=== PATIENT | female | born 1955 | race Caucasian/White ===

== ENCOUNTER 2020-07-31 03:06 | Inpatient (IN) ==
--- NOTE | 2020-07-31 03:36 | DR.SOBA ---
HPI Time Seen Time Seen by Provider: 07/31/20 03:27 Primary Care Physician Primary Care Physician: bob HPI Comment HPI Comment: PATIENT IS 65YR OLD FEMALE IN ER WITH INCREASING SOB, LOW O2 SATURATION, COUGH, CONGESTION AND PLEURITIC CHEST TIGHTNESS. PATIENT ALSO TO BE CONFUSE. RUNNING LOW GRADE FEVER. PATIENT HAVE HISTORY OF COPD. Complaints Chief Complaint Doctors Comments: INCREASING SOB, COUGH, WHEEZING AND CONFUSION WORSE TODAY. Chief Complaint:: cough, short of breath, confusion COVID-19 Coronavirus risk:travel/contact w/high risk person: No Has patient experienced Coronavirus symptoms: Yes Coronavirus symptoms experienced: Fever, Coughing and Shortness of Breath Reviewed Nurses Notes Reviewed: Yes Source History Provided: Patient Mode of Arrival Mode of Arrival: Ambulatory Timing Onset of Chief Complaint: 07/31/20 Duration Duration: Hours Context Onset:: At Rest PE Risk Factors:: None History of:: COPD Currently on:: Inhaled Bronchodilators Prehospital Care:: Inhaled B2 Modifying Factors Worsens:: Exertion and Lying Flat Improves:: Rest and Sitting Up Associated Signs and Symptoms Associated Signs and Symptoms: Wheeze, Cough and Chest Pain If Chest Pain Quality: Pleuritic Location: Substernal If Cough Cough: Nonproductive PMH PMH Past Medical History: Yes Past Medical History: COPD and Coronary Artery Disease Past Medical History Comment: fibromyalgia Past Surgical History: Yes Surgical History: Ortho Surgery Past Surgical History Comment: Vein surgery; brain aneurysm repair Family History History of Family Medical Conditions: Yes Family Medical History: Cancer and Heart Failure Travel Risk Coronavirus risk:travel/contact w/high risk person: No Has patient experienced Coronavirus symptoms: Yes Coronavirus symptoms experienced: Fever, Coughing and Shortness of Breath Infectious screening Have you traveled outside the country in the last 6 months?: No Isolation: Droplet ROS Review of Systems Constitutional: No Symptoms Reported, See HPI, Fever, Weakness and Fatigue Eyes: No Symptoms Reported and See HPI ENTM: See HPI, Nose Discharge and Nose Congestion Respiratoy: See HPI, Productive Cough and Short of Breath Cardiovascular: See HPI, Chest Pain and Palpitations Gastrointestinal/Abdominal: No Symptoms Reported and See HPI; negative Abdominal Pain, Diarrhea and Vomiting Genitourinary: No Symptoms Reported and See HPI; negative Dysuria, Frequency and Hematuria Neurological: See HPI, Headache and Weakness; negative Dizziness Musculoskeletal: No Symptoms Reported, See HPI and Back Pain; negative Muscle Pain Integumentary: No Symptoms Reported and See HPI; negative Change in Color, Rash and Juandice Hematologic/Lymphatic: See HPI and Easy Bruising Endocrine: No Symptoms Reported and See HPI; negative Increased Thirst, Increased Urine and Decreased Appetite Psychiatric: No Symptoms Reported and See HPI All Other Systems: Reviewed and Negative PE Vital Signs Vitals: Temperature 99.9 F Pulse Rate [Right] 94 Pulse Rate 113 Respiratory Rate 22 Blood Pressure [Left Arm] 103/62 Blood Pressure 109/62 O2 Sat by Pulse Oximetry 94 General Limitations: No Limitations General Appearance: Alert and In No Apparent Distress Head Head Exam: Normal Inspection and Atraumatic Eyes Eye exam: Normal Appearance, PERRL and EOMI; negative Scleral Icterus and Conjunctival Injection ENT ENT Exam: Normal Exam, Normal Oropharynx, Normal External Ear Exam and TM's Normal Bilaterally Neck Neck Exam: Normal Inspection and Trachea Midline; negative Tenderness and Lym phadenopathy Chest Chest Inspection: Symmetric Chest Wall Rise; negative Tenderness Respiratory Respiratory Exam: Accessory Muscle Use and Respiratory Distress; negative Chest Wall Tenderness Respiratory Exam: Bilateral: Wheezing and Bilateral: Rhonchi and Lower: Wheezing and Lower: Rhonchi Cardiovascular Cardiovascular Exam: Normal Rhythm and Tachycardia; negative Systolic Murmur and Diastolic Murmur Abdominal Exam Abdominal Exam: Normal Inspection, Normal Bowel Sounds and Soft; negative Tenderness Extremities Extremities Exam: Normal Inspection, Tenderness and Normal Capillary Refill; negative Edema and Calf Tenderness Back Back Exam: Normal Inspection; negative (R) CVA Tenderness and (L) CVA Tenderness Neurologic Neurological Exam: Alert, Oriented X3 and CN II-XII Intact; negative Motor Sensory Deficit Psychiatric Psychiatric Exam: Normal Affect and Normal Mood Skin Skin Exam: Warm, Dry, Intact and Normal Color MDM Differential Diagnosis Differential Diagnosis: Bronchitis, CHF, COPD, Dysrhythmia, Hyponatremia, Mycardial Infarction, Pneumonia, Pneumothorax, Respiratory Insufficiency, Sinusitis, URI and Other (VIRAL ILLNESS.) COURSE Treatment Treatment: SEE ORDERS. DUO NEB, SOLUMEDROL 125MG IV AND ROCEPHIN 1GM IVPB. NS 1250CC IV BOLUS. O2 3L/M. Reevaluation 1st: Improved Consultation Consultation Comments: DISCUSSED PATIENT WITH DR. MANCIA. HE WILL ADMIT PATIENT. Education/Counseling Education/Counseling: Patient and Family Educated On: Diagnosis ROR Labs Reviewed Laboratory Results Reviewed?: Yes Result Diagrams: 07/31/20 03:52 07/31/20 03:52 Laboratory: WBC 13.1 X10^3/uL (3.6-10.0) H 07/31/20 03:52 RBC 4.29 X10^6/uL (3.5-5.4) 07/31/20 03:52 Hgb 11.8 g/dL (12.0-16.0) L 07/31/20 03:52 Hct 35.4 % (36.0-47.0) L 07/31/20 03:52 MCV 82.5 fL (80.0-100.0) 07/31/20 03:52 MCH 27.4 pg (27.0-34.0) 07/31/20 03:52 MCHC 33.2 g/dL (33.0-35.0) 07/31/20 03:52 RDW 15.1 % (11.6-16.5) 07/31/20 03:52 Plt Count 175 X10^3/uL (150.0-450.0) 07/31/20 03:52 MPV 8.6 fL (7.4-11.0) 07/31/20 03:52 Neut % (Auto) 88.9 % (42.0-75.0) H 07/31/20 03:52 Lymph % (Auto) 4.0 % (21.0-51.0) L 07/31/20 03:52 [place] % (Auto) 5.3 % (0.0-13.0) 07/31/20 03:52 Eos % (Auto) 1.6 % (0.9-2.9) 07/31/20 03:52 Baso % (Auto) 0.2 % (0.2-1.0) 07/31/20 03:52 Neut # (Auto) 11.6 x10^3/uL (2.2-4.8) H 07/31/20 03:52 Lymph # (Auto) 0.5 X10^3/uL (1.3-2.9) L 07/31/20 03:52 [place] # (Auto) 0.7 x10^3/uL (0.3-0.8) 07/31/20 03:52 Eos # (Auto) 0.2 x10^3/uL (0.0-0.2) 07/31/20 03:52 Baso # (Auto) 0.0 X10^3/uL (0.0-0.1) 07/31/20 03:52 Absolute Nucleated RBC 0.0 /100WBC 07/31/20 03:52 Sample Site Rrad 07/31/20 04:30 ABG pH 7.400 (7.35-7.45) 07/31/20 04:30 ABG pCO2 31.0 mmHg (35.0-45.0) L 07/31/20 04:30 ABG pO2 49.0 mmHg (80.0-100.0) L* 07/31/20 04:30 ABG HCO3 19.2 mmol/L (22-26) L 07/31/20 04:30 ABG O2 Saturation 84.0 % (90-100) L* 07/31/20 04:30 ABG Base Excess -4.6 mmol/L (-2.0-2.0) L 07/31/20 04:30 Dat Test Pos 07/31/20 04:30 A-a Gradient 62.0 mmHg 07/31/20 04:30 FiO2 21.0 07/31/20 04:30 Blood Gas Comments David abg well-mtf 07/31/20 04:30 Sodium 134 mmol/L (136-145) L 07/31/20 03:52 Corrected Sodium 135 mmol/L (136-145) L 07/31/20 03:52 Potassium 3.7 mmol/L (3.5-5.1) 07/31/20 03:52 Chloride 98 mmol/L (98-107) 07/31/20 03:52 Carbon Dioxide 20.9 mmol/L (21-32) L 07/31/20 03:52 BUN 46 mg/dL (7-18) H 07/31/20 03:52 Creatinine 2.99 mg/dL (0.55-1.02) H 07/31/20 03:52 Est GFR (MDRD) Af Amer 20 (>60) L 07/31/20 03:52 Est GFR (MDRD) Non-Af 17 (>60) L 07/31/20 03:52 Glucose 122 mg/dL (65-99) H 07/31/20 03:52 Calcium 8.6 mg/dL (8.5-10.1) 07/31/20 03:52 Corrected Calcium 9.3 mg/dL (8.5-10.1) 07/31/20 03:52 Total Bilirubin 0.20 mg/dL (0.2-1.0) 07/31/20 03:52 AST 13 Units/L (15-37) L 07/31/20 03:52 ALT 13 Units/L (12-78) 07/31/20 03:52 Alkaline Phosphatase 72 Units/L (46-116) 07/31/20 03:52 Creatine Kinase 152 Units/L (26-192) 07/31/20 03:52 CK-MB (CK-2) 2.3 ng/mL (0-4.0) 07/31/20 03:52 CK/CKMB % Calc 1.5 % (<4) 07/31/20 03:52 Troponin I < 0.02 ng/mL (0-1.5) 07/31/20 03:52 Total Protein 7.9 g/dL (6.4-8.2) 07/31/20 03:52 Albumin 3.1 g/dL (3.4-5.0) L 07/31/20 03:52 Globulin 4.8 g/dL (2.5-4.5) H 07/31/20 03:52 Albumin/Globulin Ratio 0.6 Ratio (1.1-2.1) L 07/31/20 03:52 SARS-CoV-2 (PCR) Negative (NEGATIVE) 07/31/20 05:52 Influenza Type A (PCR) Negative (NEGATIVE) 07/31/20 05:52 Influenza Type B (PCR) Negative (NEGATIVE) 07/31/20 05:52 RSV (PCR) Negative (NEGATIVE) 07/31/20 05:52 XRAY XRAY Interpreted by: Radiologist (REPORT NOTED AND DISCUSSED WITH PATIENT.) and Self EKG Rate: 113 Hasty: Normal Rhythm: NSR Block: None Hypertrophy: LAE ST: Normal Opioid Opioid Risk Tool Age (Jack box if 16-45): No Total: 0 Total Score Risk Category: Low Risk Copyright: [facility] predicting aberrant behaviors Diagnosis Discharge Problem: COPD exacerbation, Hypoxia Acute renal failure Qualifiers: Acute renal failure type: unspecified Qualified Code(s): N17.9 - Acute kidney failure, unspecified
[2020-07-31] MEDS ORDERED: SOLU-Medrol 125 MG VIAL ONE (03:43)
[2020-07-31] MEDS ORDERED: DUONEB 0.5 MG/3 MG (3 mL) NEB ONE (03:44)
[2020-07-31] MEDS ORDERED: SOLU-Medrol 125 MG VIAL IVP ONE (03:51)
[2020-07-31 04:11] LABS: BASOPHILS % (AUTO) 0.2 % (0.2-1.0); EOSINOPHILS # (AUTO) 0.2 x10^3/uL (0.0-0.2); EOSINOPHILS % (AUTO) 1.6 % (0.9-2.9); HEMATOCRIT 35.4 % (36.0-47.0); HEMOGLOBIN 11.8 g/dL (12.0-16.0); LYMPHOCYTES # (AUTO) 0.5 X10^3/uL (1.3-2.9); MEAN CORPUSCULAR HEMOGLOBIN 27.4 pg (27.0-34.0); MEAN CORPUSCULAR HGB CONC 33.2 g/dL (33.0-35.0); MEAN CORPUSCULAR VOLUME 82.5 fL (80.0-100.0); MEAN PLATELET VOLUME 8.6 fL (7.4-11.0); MONOCYTES # (AUTO) 0.7 x10^3/uL (0.3-0.8); MONOCYTES % (AUTO) 5.3 % (0.0-13.0); NEUTROPHILS # (AUTO) 11.6 x10^3/uL (2.2-4.8); NEUTROPHILS % (AUTO) 88.9 % (42.0-75.0); PLATELET COUNT 175 X10^3/uL (150.0-450.0); RED BLOOD COUNT 4.29 X10^6/uL (3.5-5.4); RED CELL DISTRIBUTION WIDTH 15.1 % (11.6-16.5); WHITE BLOOD COUNT 13.1 X10^3/uL (3.6-10.0)
[2020-07-31 04:23] LABS: BLOOD UREA NITROGEN 46 mg/dL (7-18); CALCIUM 8.6 mg/dL (8.5-10.1); CARBON DIOXIDE 20.9 mmol/L (21-32); CHLORIDE 98 mmol/L (98-107); COR NA(FOR HYPERGLY) 135 mmol/L (136-145); CREATININE 2.99 mg/dL (0.55-1.02); SODIUM 134 mmol/L (136-145); TROPONIN I < 0.02 ng/mL (0-1.5); eGFR NON BLACK RACES 17 (>60)
[2020-07-31 04:28] LABS: ALANINE AMINOTRANSFERASE 13 Units/L (12-78); ALBUMIN 3.1 g/dL (3.4-5.0); ALKALINE PHOSPHATASE 72 Units/L (46-116); ASPARTATE AMINO TRANSFERASE 13 Units/L (15-37); CKMB % 1.5 % (<4); COR CA(FOR HYPOALB) 9.3 mg/dL (8.5-10.1); CREATINE KINASE 152 Units/L (26-192); CREATINE KINASE MB 2.3 ng/mL (0-4.0); TOTAL PROTEIN 7.9 g/dL (6.4-8.2)
[2020-07-31 04:31] LABS: ABG BASE EXCESS -4.6 mmol/L (-2.0-2.0); ABG HCO3 19.2 mmol/L (22-26)
[2020-07-31 04:32] LABS: ABG ALLEN TEST POS
--- NOTE | 2020-07-31 04:57 | RAD ---
STUDY: FRONTAL VIEW CHESTCOMPARISON: NoneHISTORY: SOBFINDINGS:Subsegmental atelectasis is noted.No focal consolidation is seen.The heart size is within normal limits.The mediastinum is unremarkable.There is no evidence of pleural effusion or gross pneumothorax.The trachea is midline.IMPRESSION:1. No focal consolidation is seen.2. The heart size is normal.Electronically signed by: Yasmany Hansen (Jul 31, 2020 04:55:57)
[2020-07-31] MEDS ORDERED: ROCEPHIN 1 GRAM IV PREMIX 1 G/50 ML IV.SOLN. IV ONE ×2 (05:36→05:39)
[2020-07-31 07:29] LABS: BILIRUBIN,URINE NEGATIVE (NEGATIVE); BLOOD/HEMOGLOBIN,URINE 2+ (NEGATIVE); GLUCOSE, URINE 1+ (NEGATIVE); KETONES,URINE NEGATIVE (NEGATIVE); LEUKOCYTE ESTERASE ,URINE 2+ (NEGATIVE); NITRITES,URINE NEGATIVE (NEGATIVE); PROTEIN,URINE 2+ (NEGATIVE); UROBILINOGEN,URINE NORMAL (NORMAL)
[2020-07-31 07:42] LABS: APPEARANCE,URINE CLOUDY (CLEAR); COLOR,URINE YELLOW (YELLOW)
[2020-07-31 07:43] LABS: AMORPHOUS SEDIMENT,UR 1+ /HPF (NEGATIVE); BACTERIA,URINE 1+ /HPF (NEGATIVE); GRANULAR CASTS,URINE RARE /LPF (NEGATIVE); HYALINE CASTS, URINE RARE /LPF (NEGATIVE); SQUAMOUS EPITHELIAL CELL,UR MODERATE /HPF (NEGATIVE); YEAST,URINE RARE /HPF (NEGATIVE)
[2020-07-31] MEDS: DUONEB 0.5 MG/3 MG (3 mL) NEB SCH ×4 (09:05→21:05)
[2020-07-31 10:27] LABS: CKMB % 1.7 % (<4); CREATINE KINASE 133 Units/L (26-192); CREATINE KINASE MB 2.2 ng/mL (0-4.0); TROPONIN I < 0.02 ng/mL (0-1.5)
[2020-07-31] MEDS ORDERED: NS 250 ML IV 250 ML IV ONE (11:13)
[2020-07-31] MEDS: VSL#3 PO SCH (11:16)
[2020-07-31] MEDS: FORTAZ or TAZICEF VIAL INJ 1 G in NS 100 ML IV + SPIKE MINIBAG* 100 ML IV SCH (11:17)
[2020-07-31 12:20] VITALS: BMI 26.6
[2020-07-31] MEDS: DALIRESP PO SCH (12:29)
[2020-07-31] MEDS: NS 1000 ML 1,000 ML IV SCH ×2 (15:30→22:22)
[2020-07-31] MEDS: SINGULAIR TAB 10 MG PO SCH (21:15)
[2020-08-01] MEDS: NS 1000 ML 1,000 ML IV SCH ×6 (00:12→15:20)
[2020-08-01] MEDS: DUONEB 0.5 MG/3 MG (3 mL) NEB SCH ×6 (01:10→21:16)
[2020-08-01 05:47] LABS: BASOPHILS # (AUTO) 0.1 X10^3/uL (0.0-0.1); BASOPHILS % (AUTO) 0.6 % (0.2-1.0); EOSINOPHILS # (AUTO) 0.4 x10^3/uL (0.0-0.2); EOSINOPHILS % (AUTO) 3.1 % (0.9-2.9); HEMATOCRIT 26.7 % (36.0-47.0); LYMPHOCYTES # (AUTO) 0.9 X10^3/uL (1.3-2.9); LYMPHOCYTES % (AUTO) 6.6 % (21.0-51.0); MEAN CORPUSCULAR HGB CONC 32.8 g/dL (33.0-35.0); MEAN CORPUSCULAR VOLUME 82.1 fL (80.0-100.0); MEAN PLATELET VOLUME 8.6 fL (7.4-11.0); MONOCYTES % (AUTO) 7.3 % (0.0-13.0); NEUTROPHILS # (AUTO) 10.9 x10^3/uL (2.2-4.8); NEUTROPHILS % (AUTO) 82.4 % (42.0-75.0); PLATELET COUNT 175 X10^3/uL (150.0-450.0); RED BLOOD COUNT 3.25 X10^6/uL (3.5-5.4); RED CELL DISTRIBUTION WIDTH 15.2 % (11.6-16.5); WHITE BLOOD COUNT 13.3 X10^3/uL (3.6-10.0)
[2020-08-01 05:49] LABS: HEMOGLOBIN 8.8 g/dL (12.0-16.0)
[2020-08-01 06:00] LABS: ALBUMIN 2.5 g/dL (3.4-5.0); CALCIUM 7.7 mg/dL (8.5-10.1); CARBON DIOXIDE 18.5 mmol/L (21-32); COR CA(FOR HYPOALB) 8.9 mg/dL (8.5-10.1); CREATININE 2.14 mg/dL (0.55-1.02); TOTAL PROTEIN 6.5 g/dL (6.4-8.2)
[2020-08-01] MEDS: VSL#3 PO SCH (08:38)
[2020-08-01] MEDS: DALIRESP PO SCH (08:39)
[2020-08-01] MEDS: FORTAZ or TAZICEF VIAL INJ 1 G in NS 100 ML IV + SPIKE MINIBAG* 100 ML IV SCH (08:40)
[2020-08-01] MEDS ORDERED: SOLU-Medrol 40 MG VIAL IVP SCH (09:00)
[2020-08-01] MEDS ORDERED: NS 1000 ML 1,000 ML IV ONE (12:07)
[2020-08-01] MEDS ORDERED: NS 250 ML IV 250 ML IV ONE (14:30)
[2020-08-01] MEDS ORDERED: NORCO 10/325 TAB PO PRN (14:34)
[2020-08-01] MEDS ORDERED: ZESTRIL TAB 5 MG ONE (15:09)
[2020-08-01] MEDS: ZESTRIL TAB 5 MG PO SCH (15:12)
[2020-08-01] MEDS: DEPAKOTE D.R. TAB PO SCH (15:13)
[2020-08-01] MEDS: PROzac PO SCH (15:13)
[2020-08-01 18:19] LABS: BASOPHILS % (AUTO) 0.2 % (0.2-1.0); EOSINOPHILS # (AUTO) 0.5 x10^3/uL (0.0-0.2); EOSINOPHILS % (AUTO) 3.1 % (0.9-2.9); HEMATOCRIT 28.3 % (36.0-47.0); HEMOGLOBIN 9.2 g/dL (12.0-16.0); LYMPHOCYTES # (AUTO) 0.7 X10^3/uL (1.3-2.9); LYMPHOCYTES % (AUTO) 4.8 % (21.0-51.0); MEAN CORPUSCULAR HEMOGLOBIN 26.9 pg (27.0-34.0); MEAN CORPUSCULAR HGB CONC 32.5 g/dL (33.0-35.0); MEAN CORPUSCULAR VOLUME 82.5 fL (80.0-100.0); MEAN PLATELET VOLUME 8.3 fL (7.4-11.0); MONOCYTES # (AUTO) 0.5 x10^3/uL (0.3-0.8); MONOCYTES % (AUTO) 3.1 % (0.0-13.0); NEUTROPHILS # (AUTO) 13.7 x10^3/uL (2.2-4.8); NEUTROPHILS % (AUTO) 88.8 % (42.0-75.0); PLATELET COUNT 192 X10^3/uL (150.0-450.0); RED BLOOD COUNT 3.43 X10^6/uL (3.5-5.4); RED CELL DISTRIBUTION WIDTH 15.7 % (11.6-16.5); WHITE BLOOD COUNT 15.4 X10^3/uL (3.6-10.0)
[2020-08-01] MEDS ORDERED: POTASSIUM CHL 60 MEQ/NS 0.45% 500 ML IV PRN (19:00)
[2020-08-01] MEDS ORDERED: KLOR-CON PO PRN (19:00)
[2020-08-01] MEDS ORDERED: MICRO K EXTEN CAP 10 MEQ PO PRN (19:00)
[2020-08-01] MEDS ORDERED: K-RIDER 10 MEQ/NS 100 ML 10 MEQ/100 ML BAG IV PRN (19:00)
[2020-08-01] MEDS ORDERED: POTASSIUM CHL 40 MEQ/NS 0.45% 500 ML IV PRN (19:00)
[2020-08-01] MEDS ORDERED: K-DUR TAB 20 MEQ PO PRN (19:00)
[2020-08-01] MEDS ORDERED: POTASSIUM CHLORIDE LIQ 20 MEQ UDC PO PRN (19:00)
[2020-08-01] MEDS: MAGNESIUM SULFATE 1 GRAM/100 mL PREMIX 1 GM/100 ML BAG IV PRN ×4 (19:40→23:29)
[2020-08-01] MEDS ORDERED: AMBIEN PO SCH (21:00)
[2020-08-01] MEDS: SINGULAIR TAB 10 MG PO SCH (21:01)
[2020-08-01] MEDS: NEURONTIN CAP 300 MG PO SCH (21:01)
[2020-08-02] MEDS: MAGNESIUM SULFATE 1 GRAM/100 mL PREMIX 1 GM/100 ML BAG IV PRN ×2 (01:40→02:50)
[2020-08-02] MEDS: NS 1000 ML 1,000 ML IV SCH ×2 (04:52→12:30)
[2020-08-02 05:44] LABS: BASOPHILS % (AUTO) 0.2 % (0.2-1.0); EOSINOPHILS # (AUTO) 0.9 x10^3/uL (0.0-0.2); EOSINOPHILS % (AUTO) 5.8 % (0.9-2.9); HEMATOCRIT 27.4 % (36.0-47.0); HEMOGLOBIN 8.9 g/dL (12.0-16.0); LYMPHOCYTES # (AUTO) 1.3 X10^3/uL (1.3-2.9); LYMPHOCYTES % (AUTO) 8.2 % (21.0-51.0); MEAN CORPUSCULAR HEMOGLOBIN 26.7 pg (27.0-34.0); MEAN CORPUSCULAR HGB CONC 32.4 g/dL (33.0-35.0); MEAN CORPUSCULAR VOLUME 82.3 fL (80.0-100.0); MEAN PLATELET VOLUME 8.1 fL (7.4-11.0); MONOCYTES # (AUTO) 1.3 x10^3/uL (0.3-0.8); MONOCYTES % (AUTO) 8.6 % (0.0-13.0); NEUTROPHILS # (AUTO) 12.1 x10^3/uL (2.2-4.8); NEUTROPHILS % (AUTO) 77.2 % (42.0-75.0); PLATELET COUNT 193 X10^3/uL (150.0-450.0); RED BLOOD COUNT 3.33 X10^6/uL (3.5-5.4); RED CELL DISTRIBUTION WIDTH 15.6 % (11.6-16.5); WHITE BLOOD COUNT 15.6 X10^3/uL (3.6-10.0)
[2020-08-02 05:56] LABS: ALANINE AMINOTRANSFERASE 27 Units/L (12-78); ALBUMIN 2.4 g/dL (3.4-5.0); ALKALINE PHOSPHATASE 68 Units/L (46-116); ASPARTATE AMINO TRANSFERASE 21 Units/L (15-37); BLOOD UREA NITROGEN 25 mg/dL (7-18); CALCIUM 8.3 mg/dL (8.5-10.1); CHLORIDE 107 mmol/L (98-107); COR CA(FOR HYPOALB) 9.6 mg/dL (8.5-10.1); COR NA(FOR HYPERGLY) 139 mmol/L (136-145); CREATININE 1.02 mg/dL (0.55-1.02); MAGNESIUM 3.1 mg/dL (1.7-2.9); SODIUM 138 mmol/L (136-145); TOTAL PROTEIN 6.4 g/dL (6.4-8.2); eGFR NON BLACK RACES 58 (>60)
[2020-08-02] MEDS: DUONEB 0.5 MG/3 MG (3 mL) NEB SCH ×4 (06:07→12:45)
[2020-08-02] MEDS: DEPAKOTE D.R. TAB PO SCH (08:41)
[2020-08-02] MEDS: DALIRESP PO SCH (08:41)
[2020-08-02] MEDS: FORTAZ or TAZICEF VIAL INJ 1 G in NS 100 ML IV + SPIKE MINIBAG* 100 ML IV SCH (08:41)
[2020-08-02] MEDS: NEURONTIN CAP 300 MG PO SCH (08:42)
[2020-08-02] MEDS: PROzac PO SCH (08:42)
[2020-08-02] MEDS: VSL#3 PO SCH (08:43)
[2020-08-02] MEDS: ZESTRIL TAB 5 MG PO SCH (08:43)
[2020-08-02] MEDS ORDERED: ZyrTEC TAB 10 MG PO SCH (09:00)
[2020-08-02] MEDS ORDERED: LINZESS PO SCH (09:00)
[2020-08-02] MEDS ORDERED: PriLOSEC PO SCH (09:00)
[2020-08-02] MEDS ORDERED: LIPITOR TAB 20 MG PO SCH ×2 (09:00)
[2020-08-02] MEDS ORDERED: PREDNISONE TAB 10 MG PO SCH (09:00)
[2020-08-02] MEDS ORDERED: NS 250 ML IV 250 ML IV ONE (09:33)
[2020-08-02] MEDS ORDERED: FOLIC ACID TAB 1 MG PO SCH (10:00)
[2020-08-02 12:30] VITALS: BP 129/77
[2020-08-02 14:53] LABS: HEMATOCRIT 31.1 % (36.0-47.0); HEMOGLOBIN 10.3 g/dL (12.0-16.0)
== END 2020-08-02 15:55 | disposition home or self-care (01) | DRG 191 ==
LOC: ER 03:14 → MERGE 06:59 → OBS 06:59
PROVIDERS: ADMIT Obstetrics & Gynecology Obstetrics; ATTEND Obstetrics & Gynecology Obstetrics